=== PATIENT | female | born 1930 | race Caucasian/White ===

== ENCOUNTER 2016-08-25 17:31 | Inpatient (IN) | payer OTHER ==
[~2016-08-25] VITALS: Ht 162.6 cm; Wt 55.8 kg
[~2016-08-25 17:31] MED LIST: ACETAMINOPHEN325 M1 PO; AMLODIPINE BESYL5 MG PO; ANUSOL-HC21 GM PR; ATIVAN0.5 MG PO; ATIVAN1 MG PO; BACTRIM,SEPT1 TABLET PO; BUSPAR15 MG PO; BUSPAR5 MG PO; CALTRATE 600 +1 EAC2 PO; EXELON PATCH9.5 MG TD; KEFLEX500 MG PO; LISINOPRIL10 MG PO; LOVENOX40 MG/0.4 SC; LOW DOSE ASPIRI81 M1 PO; NO HOME MEDS; NOHOMEMEDS; NORVASC5 MG PO; PROZAC20 MG/5 ML PO; ZESTRIL10 MG PO
[2016-08-25 20:52] LABS: EOSINOPHIL (%) 0 % (0-5); IMMATURE GRANULOCYTE (%) 0.3 % (0.0-0.7); IMMATURE GRANULOCYTE COUNT 0.5 K/uL; LYMPHOCYTE COUNT 0.4 K/uL (1.0-2.8); MCH 31.8 PG (29.0-34.0); MCHC 33.9 G/DL (30.0-36.0); MCV 93.9 FL (83-99); MEAN PLAT.VOLUME 10.2 uM^3 (9.5-12.4); MONOCYTE COUNT 1.1 K/uL (0-0.8); NEUTROPHIL (%) 91.5 % (45-76); NEUTROPHIL COUNT 16.1 K/uL (1.8-6.4); PLATELET COUNT 230 K/uL (156-360); RBC DIS.WIDTH-CV 13.2 % (11.8-14.6); RBC DIS.WIDTH-SD 43.2 % (39-53); WHITE BLOOD COUNT 17.6 K/uL (4.1-10.2)
[2016-08-25 21:00] LABS: CHLORIDE 109 mEq/L (99-109); POTASSIUM 3.7 mEq/L (3.7-5.4); SODIUM 140 mEq/L (136-147)
[2016-08-25 21:00] LABS: ADD MIUA? YES; BILIRUBIN NEGATIVE; BLOOD SMALL; COLOR YELLOW ((YELLOW)); GLUCOSE (STRIP) NEGATIVE; KETONES NEGATIVE; LEUKOCYTES LARGE; NITRITE POSITIVE; PROTEIN (STRIP) 30; UROBILINOGEN 0.2 MG/DL (0.2-1.0)
[2016-08-25 21:03] LABS: GLUCOSE 156 mg/dL (70-99)
[2016-08-25 21:04] LABS: ANION GAP 10 MEQ/L (2-14)
[2016-08-25 21:05] LABS: TOTAL BILIRUBIN 0.5 mg/dL (0.0-1.0)
[2016-08-25 21:06] LABS: ALKALINE PHOSPHATASE 67 IU/L (3-129); GFR ESTIMATE (CALCULATED) 38 mL/min/
[2016-08-25 21:07] LABS: UREA NITROGEN (BUN) 25 mg/dL (9-23)
[2016-08-25 21:10] LABS: LIPASE 70 U/L (1.0-51.0)
[2016-08-25 21:22] LABS: RED BLOOD CELLS 0-5 /HPF (0-5); WHITE BLOOD CELLS TNTC /HPF (0-5)
[2016-08-25 21:23] LABS: BACTERIA 4+ /HPF; CASTS NONE SEEN /LPF; CRYSTALS NONE SEEN; EPITHELIAL CELLS RARE /HPF; MUCUS NONE SEEN /LPF
[2016-08-25] MEDS ORDERED: CRANBERRY405 MG PO (21:44)
[2016-08-25] MEDS ORDERED: DEPAKOTE500 MG PO (21:45)
[2016-08-25] MEDS ORDERED: DEPAKOTE250 MG PO (21:45)
[2016-08-25] MEDS ORDERED: FEOSOL325 MG PO (21:46)
[2016-08-25] MEDS ORDERED: TAB-A-VITE1 EACH PO (21:47)
[2016-08-25] MEDS ORDERED: SENEXON-S TABL1 EACH PO (21:47)
[2016-08-25] MEDS ORDERED: MILK OF MAGN PO (22:27)
[2016-08-25] MEDS ORDERED: DULCOLAX10 MG PR (22:27)
[2016-08-25] MEDS ORDERED: FLEET ENEMA-AD118 ML PR (22:28)
[2016-08-25] MEDS ORDERED: FEVERALL650 M1 PR (22:33)
[2016-08-26 02:07] VITALS: BP 118/57
[2016-08-26 07:15] VITALS: BP 127/72
[2016-08-26 07:23] LABS: HEMATOCRIT 29.3 % (36.0-46.0); MCH 30.9 PG (29.0-34.0); MCHC 32.8 G/DL (30.0-36.0); MCV 94.2 FL (83-99); MEAN PLAT.VOLUME 10.1 uM^3 (9.5-12.4); PLATELET COUNT 200 K/uL (156-360); RBC DIS.WIDTH-CV 13.8 % (11.8-14.6); RBC DIS.WIDTH-SD 47.3 % (39-53); RED BLOOD COUNT 3.11 M/uL (3.80-5.20); WHITE BLOOD COUNT 14.9 K/uL (4.1-10.2)
[2016-08-26 07:47] LABS: ALKALINE PHOSPHATASE 55 IU/L (3-129); ANION GAP 8 MEQ/L (2-14); CHLORIDE 110 MEQ/L (99-109); GFR ESTIMATE (CALCULATED) 45 mL/min/; SAMPLE HEMOLYSIS CHECK 0; SAMPLE ICTERIC CHECK 0; SAMPLE LIPEMIA CHECK 0; SODIUM 142 MEQ/L (136-147); TOTAL BILIRUBIN 0.4 MG/DL (0.0-1.0); UREA NITROGEN (BUN) 24 mg/dL (9-23)
[2016-08-26 07:52] LABS: GLUCOSE 98 mg/dL (70-99)
[2016-08-26 15:53] VITALS: BP 127/57
[2016-08-26 22:26] VITALS: BP 121/60
[2016-08-27 07:44] VITALS: BP 140/66
[2016-08-27 07:54] LABS: EOSINOPHIL (%) 0.9 % (0-5); EOSINOPHIL COUNT 0.1 K/uL (0-0.3); HEMATOCRIT 29.6 % (36.0-46.0); IMMATURE GRANULOCYTE (%) 0.3 % (0.0-0.7); LYMPHOCYTE COUNT 1.5 K/uL (1.0-2.8); MCH 32.4 PG (29.0-34.0); MCHC 34.5 G/DL (30.0-36.0); MEAN PLAT.VOLUME 10.4 uM^3 (9.5-12.4); MONOCYTE (%) 9.9 % (3-12); NEUTROPHIL (%) 73.7 % (45-76); NEUTROPHIL COUNT 7.1 K/uL (1.8-6.4); PLATELET COUNT 203 K/uL (156-360); RBC DIS.WIDTH-CV 13.7 % (11.8-14.6); RBC DIS.WIDTH-SD 46.9 % (39-53); RED BLOOD COUNT 3.15 M/uL (3.80-5.20)
[2016-08-27 07:56] LABS: WHITE BLOOD COUNT 9.7 K/uL (4.1-10.2)
[2016-08-27 08:14] LABS: ALKALINE PHOSPHATASE 55 IU/L (3-129); ANION GAP 6 MEQ/L (2-14); CHLORIDE 109 MEQ/L (99-109); GFR ESTIMATE (CALCULATED) 45 mL/min/; GLUCOSE 90 mg/dL (70-99); POTASSIUM 4.1 MEQ/L (3.7-5.4); SAMPLE HEMOLYSIS CHECK 0; SAMPLE ICTERIC CHECK 0; SAMPLE LIPEMIA CHECK 0; SODIUM 140 MEQ/L (136-147); TOTAL BILIRUBIN 0.3 MG/DL (0.0-1.0); UREA NITROGEN (BUN) 19 mg/dL (9-23)
[2016-08-27 15:37] VITALS: BP 140/74
[2016-08-28 08:17] VITALS: BP 156/93
[2016-08-28 16:38] VITALS: BP 150/80
[2016-08-28 23:01] VITALS: BP 165/85
[2016-08-29 08:17] VITALS: BP 141/67
[2016-08-29] MEDS ORDERED: CEFTRIAXONE2 G1 IM (15:17)
[2016-08-29] MEDS ORDERED: CEFTIN500 MG PO (15:20)
== END 2016-08-29 18:00 | DRG 689 ==
LOC: EME → EDBD 17:31 → EME 17:31 → 5EAST 23:55 → EDOF 23:55 → 5EAST 08-26 01:47
PROVIDERS: Internal Medicine; Physician Assistant
DX: N10 Acute pyelonephritis (principal); S72.044A Nondisplaced fracture of base of neck of right femur, initial encounter for closed fracture; R65.10 Systemic inflammatory response syndrome (SIRS) of non-infectious origin without acute organ dysfunction; I73.9 Peripheral vascular disease, unspecified; G30.9 Alzheimer's disease, unspecified; F02.80 Dementia in other diseases classified elsewhere, unspecified severity, without behavioral disturbance, psychotic disturbance, mood disturbance, and anxiety; I10 Essential (primary) hypertension; F41.9 Anxiety disorder, unspecified; M40.209 Unspecified kyphosis, site unspecified; F29 Unspecified psychosis not due to a substance or known physiological condition; B96.20 Unspecified Escherichia coli [E. coli] as the cause of diseases classified elsewhere
CPT/HCPCS: 71010; 80053; 81003; 83605; 83690; 85025; 85027; 87040; 87077; 87086; 87186; 87801; 99281; 99285; J0696; J1650; J7030; J7050